=== PATIENT | male | born 1945 | race Hispanic/Latino ===

== ENCOUNTER 2017-10-28 13:30 | Observation (INO) | payer MEDICARE ==
[~2017-10-28] VITALS: Ht 180.3 cm; Wt 93.9 kg
[~2017-10-28 13:30] MED LIST: ASPI-1197 PO; PANT40TA25 PO; ROSU20TA38 PO
[2017-10-28 13:46] LABS: HEMATOCRIT 45.4 % (42-54); LYMPHOCYTES % (AUTO) 39.5 % (21.0-51.0); MEAN CORPUSCULAR HEMOGLOBIN 28.6 pg (27.0-33.0); MEAN CORPUSCULAR HGB CONC 33.8 g/dL (32.0-36.0); MEAN CORPUSCULAR VOLUME 84.7 fL (79-99); NEUTROPHILS % (AUTO) 49.5 % (40.0-77.0); NUCLEATED RED BLOOD CELLS 0.1 % (0.0-0.19); PLATELET COUNT (AUTO) 237 K/uL (130-400); RED BLOOD CELL COUNT(AUTO) 5.36 MIL/uL (4.50-6.20); RED CELL DISTRIBUTION WIDTH 14.6 % (11.0-15.5); WHITE BLOOD COUNT (AUTO) 6.7 K/uL (4.8-10.8)
[2017-10-28 13:59] LABS: INR 0.95 (0.85-1.15); PARTIAL THROMBOPLASTIN TIME 26.1 SEC (26.3-35.5)
[2017-10-28 14:04] LABS: CREATININE 1.1 mg/dL (0.5-1.5); POTASSIUM 4.2 mmol/L (3.5-5.1)
[2017-10-28 14:18] LABS: ALBUMIN 3.9 g/dL (3.5-5.0); BILIRUBIN,TOTAL 0.4 mg/dL (0.2-1.0); CREATINE KINASE MB 2.8 ng/mL (0.5-3.6); TOTAL PROTEIN, SERUM 7.5 g/dL (6.0-8.3)
[2017-10-28] MEDS ORDERED: NITROGLYCERIN 1GM/1 INCH PACKET TD ONE (14:19)
[2017-10-28] MEDS ORDERED: ASPIRIN 325 MG TABLET ONE (17:14)
[2017-10-28 20:30] LABS: CREATINE KINASE MB 2.4 ng/mL (0.5-3.6); CREATINE KINASE, TOTAL 115 U/L (21-232); MYOGLOBIN 77 ng/mL (10-92); TROPONIN I < 0.04 ng/mL (0.00-0.06)
[2017-10-28 20:38] VITALS: BP 155/85
[2017-10-28] MEDS ORDERED: NITROGLYCERIN 0.4 MG SL TAB SL PRN (20:45)
[2017-10-28] MEDS ORDERED: SODIUM CHLORIDE 0.9% 10 ML VIAL IVP PRN (20:45)
[2017-10-28] MEDS: NITROGLYCERIN 1GM/1 INCH PACKET TD SCH (21:00)
[2017-10-28] MEDS: METOPROLOL TARTRATE 25 MG TAB PO SCH (21:00)
[2017-10-28] MEDS ORDERED: METOPROLOL TARTRATE 25 MG TAB PO SCH (21:00)
[2017-10-28] MEDS ORDERED: EZET10TA26 PO (21:50)
[2017-10-28 23:26] VITALS: BP 125/76
[2017-10-29 02:59] LABS: CREATINE KINASE MB 1.9 ng/mL (0.5-3.6); CREATINE KINASE, TOTAL 104 U/L (21-232); MYOGLOBIN 76 ng/mL (10-92); TROPONIN I < 0.04 ng/mL (0.00-0.06)
[2017-10-29 02:59] LABS: THYROID STIMULATING HORMONE 2.37 uIU/mL (0.36-3.74)
[2017-10-29 04:03] VITALS: BP 127/80
[2017-10-29] MEDS: NITROGLYCERIN 1GM/1 INCH PACKET TD SCH (06:37)
[2017-10-29 07:20] VITALS: BP 146/99
[2017-10-29] MEDS ORDERED: METO25 PO (08:29)
[2017-10-29] MEDS ORDERED: LISI10TA7 PO (08:29)
[2017-10-29] MEDS ORDERED: LISINOPRIL 10 MG TABLET PO SCH (09:00)
[2017-10-29] MEDS ORDERED: ASPIRIN 325 MG TABLET PO SCH (09:00)
[2017-10-29] MEDS: METOPROLOL TARTRATE 25 MG TAB PO SCH (09:03)
[2017-10-29] MEDS ORDERED: EZETIMIBE 10 MG TAB PO SCH (21:00)
== END 2017-10-29 11:05 | disposition home or self-care (01) ==
LOC: EDH 13:30 → EDHIP 15:00 → 2AH 20:28
PROVIDERS: ADMIT Internal Medicine; ATTEND Internal Medicine
DX: R07.89 Other chest pain (principal); I25.10 Atherosclerotic heart disease of native coronary artery without angina pectoris; I10 Essential (primary) hypertension; E78.5 Hyperlipidemia, unspecified; Z95.1 Presence of aortocoronary bypass graft
CPT/HCPCS: 36415 ×2; 71045; 80053; 80061; 82550 ×3; 82553 ×3; 83874 ×2; 83880; 84443; 84484 ×3; 85025; 85610; 85730; 93005; 99285; G0378 ×20

== ENCOUNTER 2019-07-19 13:43 | Emergency (ER) | payer MEDICARE, OTHER ==
[~2019-07-19 13:43] MED LIST changes: +EZET10TA48 PO; +LISI10TA7 PO; +METO25 PO; -PANT40TA25 PO; -ROSU20TA38 PO
[2019-07-19] MEDS ORDERED: ACETAMINOPHEN EXTRA STRENGTH 500 MG TABLET ONE (14:19)
[2019-07-19] MEDS ORDERED: LIDOCAINE 5% TOPICAL PATCH TP ONE (14:23)
[2019-07-19 15:21] LABS: APPEARANCE,URINE Clear (CLEAR); BILIRUBIN,URINE Negative (NEGATIVE); COLOR,URINE Yellow (YELLOW); GLUCOSE, URINE (UA) Negative (NEGATIVE); KETONES,URINE Negative (NEGATIVE); LEUKOCYTE ESTERASE ,URINE Negative (NEGATIVE); NITRATE,URINE Negative (NEGATIVE); OCCULT BLOOD,URINE Negative (NEGATIVE); PH,URINE 5.5 (5.0-8.0); PROTEIN,URINE Negative (NEGATIVE)
== END 2019-07-19 16:11 | disposition home or self-care (01) ==
LOC: EDH 13:43
DX: M25.511 Pain in right shoulder (principal); I25.810 Atherosclerosis of coronary artery bypass graft(s) without angina pectoris
CPT/HCPCS: 73030; 81003; 93005

== ENCOUNTER → 2021-03-23 | Outpatient (CLI) | payer OTHER ==
[~2021-03-23] MED LIST changes: +LISI10TA24 PO; -LISI10TA7 PO
== END | disposition home or self-care (01) ==
LOC: RAH 08:29
DX: N28.1 Cyst of kidney, acquired (principal); K76.0 Fatty (change of) liver, not elsewhere classified
CPT/HCPCS: 76700

== ENCOUNTER → 2022-02-05 | Outpatient (CLI) | payer OTHER | END | disposition home or self-care (01) | LOC: RAH 12:08 | PROVIDERS: ATTEND Internal Medicine | DX: Z01.818 Encounter for other preprocedural examination (principal); M17.12 Unilateral primary osteoarthritis, left knee; I25.10 Atherosclerotic heart disease of native coronary artery without angina pectoris | CPT/HCPCS: 71046 ==

== ENCOUNTER 2022-03-01 08:13 | Observation (INO) | payer OTHER ==
[2022-02-26 09:25] LABS: BASOPHILS % (AUTO) 0.8 % (0.0-5.0); EOSINOPHILS % (AUTO) 5.2 % (0.0-8.0); HEMATOCRIT 45.3 % (42-54); LYMPHOCYTES % (AUTO) 36.6 % (21.0-51.0); MEAN CORPUSCULAR HEMOGLOBIN 28.5 pg (27.0-33.0); MEAN CORPUSCULAR HGB CONC 33.8 g/dL (32.0-36.0); MEAN CORPUSCULAR VOLUME 84.4 fL (79-99); NEUTROPHILS % (AUTO) 48.1 % (40.0-77.0); PLATELET COUNT (AUTO) 207 K/uL (130-400); RED BLOOD CELL COUNT(AUTO) 5.37 MIL/uL (4.50-6.20); RED CELL DISTRIBUTION WIDTH 13.5 % (11.0-15.5); WHITE BLOOD COUNT (AUTO) 7.3 K/uL (4.8-10.8)
[2022-02-26 09:35] LABS: APPEARANCE,URINE CLEAR (CLEAR); BILIRUBIN,URINE NEGATIVE (NEGATIVE); COLOR,URINE YELLOW (YELLOW); GLUCOSE, URINE (UA) NEGATIVE (NEGATIVE); KETONES,URINE NEGATIVE (NEGATIVE); LEUKOCYTE ESTERASE ,URINE NEGATIVE (NEGATIVE); NITRATE,URINE NEGATIVE (NEGATIVE); OCCULT BLOOD,URINE NEGATIVE (NEGATIVE); PH,URINE 6.5 (5.0-8.0); PROTEIN,URINE NEGATIVE (NEGATIVE); UROBILINOGEN,URINE 0.2 mg/dL (0.2-1.0)
[2022-02-26 09:37] LABS: CREATININE 1.2 mg/dL (0.5-1.5); POTASSIUM 4.7 mmol/L (3.5-5.1)
[2022-02-26 09:45] LABS: INR 0.98 (0.85-1.15); PROTHROMBIN TIME 10.7 SEC (9.6-11.6)
[2022-02-26 14:07] VITALS: BP 155/83
[~2022-03-01] VITALS: Ht 182.9 cm; Wt 95.6 kg
[2022-03-01] VITALS (26 sets, daily range): BP systolic 14–151; BP diastolic 64–85
[~2022-03-01 08:13] MED LIST changes: +EVOL140S2 SQ; -EZET10TA48 PO; -LISI10TA24 PO; +LOSA50TA64 PO; -METO25 PO; +METO25TA6 PO; +PANT40TA54 PO
[2022-03-01] MEDS ORDERED: LACTATED RINGERS 1000ML 1,000 ML IV ONE (09:08)
[2022-03-01] MEDS: CEFAZOLIN SODIUM 1 GM VIAL IVP SCH ×4 (09:10→20:31)
[2022-03-01] MEDS ORDERED: TRANEXAMIC ACID 1000MG/10ML ONE ×2 (11:19→15:30)
[2022-03-01] MEDS ORDERED: CEFAZOLIN SODIUM 1 GM VIAL ONE (11:19)
[2022-03-01] MEDS ORDERED: GLYCOPYRROLATE 1 MG/5 ML SYRINGE ONE (12:18)
[2022-03-01] MEDS ORDERED: SUCCINYLCHOLINE CHLORIDE 20 MG/ML 10 ML VIAL ONE ×2 (12:18→12:20)
[2022-03-01] MEDS ORDERED: PROPOFOL 10 MG/ML 20ML VIAL IV ONE (12:18)
[2022-03-01] MEDS ORDERED: LIDOCAINE PF 100MG/5ML (2%) SYRINGE 5ML ONE ×2 (12:18→12:50)
[2022-03-01] MEDS ORDERED: ROCURONIUM 10MG/1ML SYR 10 MG/ML ML ONE ×2 (12:19→14:12)
[2022-03-01] MEDS ORDERED: MIDAZOLAM HCL 1 MG/ML 2ML VIAL ONE (12:19)
[2022-03-01] MEDS ORDERED: NEOSTIGMINE 5MG/5ML SYR IV ONE (12:19)
[2022-03-01] MEDS ORDERED: ONDANSETRON 4MG INJ ONE (12:19)
[2022-03-01] MEDS ORDERED: FENTANYL CITRATE PF 50 MCG/1 ML 2ML VIAL ONE (12:20)
[2022-03-01] MEDS ORDERED: ROPIVACAINE 0.5% 5MG/ML 30ML IJ ONE (12:28)
[2022-03-01] MEDS ORDERED: MEPERIDINE-PF 25 MG/ML SYG ONE (14:42)
[2022-03-01] MEDS ORDERED: PHENYLEPHRINE HCL 10 MG/ML 1ML VIAL IV ONE (14:47)
[2022-03-01] MEDS ORDERED: EPHEDRINE SULFATE 50 MG/ML AMPULE ONE (15:00)
[2022-03-01] MEDS ORDERED: FERROUS FUMARATE 324 MG TABLET PO PRN (15:00)
[2022-03-01] MEDS ORDERED: 0.9%NACL 1000ML 1,000 ML IV SCH (15:00)
[2022-03-01] MEDS ORDERED: LIDOCAINE HCL-MPF 1% 2ML VIAL IV PRN (15:00)
[2022-03-01] MEDS ORDERED: POTASSIUM CHLORIDE 20MEQ/100ML 100 ML IV PRN (15:00)
[2022-03-01] MEDS ORDERED: OXYCODONE HCL 5 MG TAB PO PRN (15:00)
[2022-03-01] MEDS ORDERED: DiphenhydrAMINE HCL 50 MG/ML VIAL IVP PRN (15:00)
[2022-03-01] MEDS ORDERED: CALCIUM CARB 500MG PO PRN (15:00)
[2022-03-01] MEDS ORDERED: KCL 20 MEQ ERTAB PO PRN (15:00)
[2022-03-01] MEDS ORDERED: TRAMADOL HCL 50 MG TABLET PO PRN (15:00)
[2022-03-01] MEDS ORDERED: ONDANSETRON 4MG INJ IVP PRN (15:00)
[2022-03-01] MEDS: ACETAMINOPHEN 500 MG TABLET PO SCH ×2 (15:00→20:31)
[2022-03-01] MEDS ORDERED: POTASSIUM CHLORIDE 10% ELIXIR 20 MEQ/15 ML UDCUP PO PRN (15:00)
[2022-03-01] MEDS ORDERED: DEXAMETHASONE SOD PHOSPHATE 10MG/ML 1ML VIAL ONE (15:18)
[2022-03-01] MEDS ORDERED: REPATHA SQ SCH (17:30)
[2022-03-01] MEDS: ASPIRIN 81 MG EC TAB PO SCH (20:30)
[2022-03-01] MEDS: LOSARTAN 50 MG TABLET PO SCH (20:30)
[2022-03-01] MEDS: CELECOXIB 200 MG CAP PO SCH (20:30)
[2022-03-01] MEDS: METOPROLOL TARTRATE 25 MG TAB PO SCH (20:30)
[2022-03-01] MEDS: FAMOTIDINE 20MG TAB PO SCH (20:30)
[2022-03-02] MEDS: OXYCODONE HCL 5 MG TAB PO PRN ×2 (01:46→08:26)
[2022-03-02 03:23] VITALS: BP 145/76
[2022-03-02] MEDS: CEFAZOLIN SODIUM 1 GM VIAL IVP SCH (03:25)
[2022-03-02] MEDS: KETOROLAC 15MG/ML VIAL (15MG/ML) IV PRN ×2 (03:26→19:53)
[2022-03-02 05:08] LABS: HEMATOCRIT 40.6 % (42-54); MEAN CORPUSCULAR HEMOGLOBIN 28.8 pg (27.0-33.0); MEAN CORPUSCULAR HGB CONC 34.2 g/dL (32.0-36.0); MEAN CORPUSCULAR VOLUME 84.1 fL (79-99); RED BLOOD CELL COUNT(AUTO) 4.83 MIL/uL (4.50-6.20); RED CELL DISTRIBUTION WIDTH 13.4 % (11.0-15.5); WHITE BLOOD COUNT (AUTO) 13.7 K/uL (4.8-10.8)
[2022-03-02 05:21] LABS: CREATININE 1.4 mg/dL (0.5-1.5); POTASSIUM 4.2 mmol/L (3.5-5.1)
[2022-03-02] MEDS: ACETAMINOPHEN 500 MG TABLET PO SCH ×4 (06:04→22:06)
[2022-03-02 08:00] VITALS: BP 144/74
[2022-03-02] MEDS: POLYETHYLENE GLYCOL 3350 17 GM POWD.PACK PO SCH (10:01)
[2022-03-02] MEDS: ASPIRIN 81 MG EC TAB PO SCH ×2 (10:02→19:49)
[2022-03-02] MEDS: CELECOXIB 200 MG CAP PO SCH ×2 (10:02→19:49)
[2022-03-02] MEDS: LOSARTAN 50 MG TABLET PO SCH ×2 (10:02→19:49)
[2022-03-02] MEDS: ASPIRIN 81MG CHEW TAB PO SCH (10:02)
[2022-03-02] MEDS: PANTOPRAZOLE 40 MG TAB DR PO SCH (10:02)
[2022-03-02] MEDS: FAMOTIDINE 20MG TAB PO SCH ×2 (10:02→19:49)
[2022-03-02] MEDS: METOPROLOL TARTRATE 25 MG TAB PO SCH ×2 (10:02→19:49)
[2022-03-02] MEDS: TAMSULOSIN HCL 0.4 MG CAP.ER.24H PO SCH (10:02)
[2022-03-02 11:44] VITALS: BP 143/83
[2022-03-02 16:00] VITALS: BP 132/79
[2022-03-02 20:49] VITALS: BP 113/67
[2022-03-03] MEDS: CEFAZOLIN SODIUM 1 GM VIAL IVP SCH (04:20)
[2022-03-03 05:17] VITALS: BP 147/100
[2022-03-03] MEDS: ACETAMINOPHEN 500 MG TABLET PO SCH (05:27)
[2022-03-03 08:00] VITALS: BP 147/88
[2022-03-03] MEDS: POLYETHYLENE GLYCOL 3350 17 GM POWD.PACK PO SCH (08:17)
[2022-03-03] MEDS: PANTOPRAZOLE 40 MG TAB DR PO SCH (08:17)
[2022-03-03] MEDS: METOPROLOL TARTRATE 25 MG TAB PO SCH (08:17)
[2022-03-03] MEDS: LOSARTAN 50 MG TABLET PO SCH (08:17)
[2022-03-03] MEDS: FAMOTIDINE 20MG TAB PO SCH (08:17)
[2022-03-03] MEDS: TAMSULOSIN HCL 0.4 MG CAP.ER.24H PO SCH (08:17)
[2022-03-03] MEDS: OXYCODONE HCL 5 MG TAB PO PRN (08:18)
[2022-03-03] MEDS: ASPIRIN 81 MG EC TAB PO SCH (08:19)
[2022-03-03] MEDS: CELECOXIB 200 MG CAP PO SCH (08:19)
[2022-03-03] MEDS: ASPIRIN 81MG CHEW TAB PO SCH (08:19)
[2022-03-03] MEDS ORDERED: ASPI-1197 PO (11:53)
[2022-03-03] MEDS ORDERED: IBUP-2077 PO (11:53)
[2022-03-04] MEDS ORDERED: BISACODYL 10 MG SUPP.RECT RC PRN (15:00)
== END 2022-03-03 15:18 | disposition home or self-care (01) ==
LOC: DAH 08:13 → DAHIP 08:14 → DAH 08:14 → 4AH 17:11
PROVIDERS: ADMIT Orthopaedic Surgery; ATTEND Orthopaedic Surgery
DX: M17.12 Unilateral primary osteoarthritis, left knee (principal); Z20.822 Contact with and (suspected) exposure to COVID-19; M25.562 Pain in left knee; G89.29 Other chronic pain; I25.10 Atherosclerotic heart disease of native coronary artery without angina pectoris; D64.9 Anemia, unspecified; K40.90 Unilateral inguinal hernia, without obstruction or gangrene, not specified as recurrent; N40.1 Benign prostatic hyperplasia with lower urinary tract symptoms; E78.5 Hyperlipidemia, unspecified; R33.8 Other retention of urine; Z95.1 Presence of aortocoronary bypass graft
CPT/HCPCS: 80048 ×2; 85025; 85610; 87088; 87426; 81003; 36415 ×2; 87641; 27447; 96374; 96376; 96375; 85027; 97161; 97039 ×3; 97116 ×3; 97530 ×3; G0378 ×48; A4663; J7120 ×2; A4600; J3010; J0690 ×4; J3490 ×4; J1100; J2710; J0330 ×2; J2001 ×2; J2250; J2704; J2405; J2175; J2795; J2370; A9272; A4649 ×4; A4930; C1776; A4215; A4223; A4222; A4221; J1885 ×2; 64447; 76942

== ENCOUNTER 2022-03-06 03:58 | Emergency (ER) | payer OTHER ==
[~2022-03-06] VITALS: Ht 180.3 cm; Wt 95.3 kg
[~2022-03-06 03:58] MED LIST changes: +IBUP-2077 PO
[2022-03-06 04:21] VITALS: BP 138/78
[2022-03-06 04:27] LABS: APPEARANCE,URINE CLEAR (CLEAR); BILIRUBIN,URINE NEGATIVE (NEGATIVE); COLOR,URINE YELLOW (YELLOW); GLUCOSE, URINE (UA) NEGATIVE (NEGATIVE); KETONES,URINE NEGATIVE (NEGATIVE); LEUKOCYTE ESTERASE ,URINE NEGATIVE (NEGATIVE); NITRATE,URINE NEGATIVE (NEGATIVE); OCCULT BLOOD,URINE NEGATIVE (NEGATIVE); PROTEIN,URINE NEGATIVE (NEGATIVE); UROBILINOGEN,URINE 0.2 mg/dL (0.2-1.0)
== END 2022-03-06 04:53 | disposition home or self-care (01) ==
LOC: EDH 03:58
DX: R33.9 Retention of urine, unspecified (principal); I25.10 Atherosclerotic heart disease of native coronary artery without angina pectoris; Z79.1 Long term (current) use of non-steroidal anti-inflammatories (NSAID); Z79.82 Long term (current) use of aspirin; Z95.1 Presence of aortocoronary bypass graft
CPT/HCPCS: 51702; 81003

== ENCOUNTER 2022-03-12 17:59 | Emergency (ER) | payer OTHER ==
[~2022-03-12] VITALS: Ht 180.3 cm; Wt 95.3 kg
[2022-03-12 18:33] LABS: APPEARANCE,URINE CLEAR (CLEAR); BILIRUBIN,URINE NEGATIVE (NEGATIVE); COLOR,URINE YELLOW (YELLOW); GLUCOSE, URINE (UA) NEGATIVE (NEGATIVE); KETONES,URINE NEGATIVE (NEGATIVE); LEUKOCYTE ESTERASE ,URINE TRACE (NEGATIVE); NITRATE,URINE POSITIVE (NEGATIVE); OCCULT BLOOD,URINE SMALL (NEGATIVE); PROTEIN,URINE TRACE mg/dL (NEGATIVE); UROBILINOGEN,URINE 0.2 mg/dL (0.2-1.0)
[2022-03-12 18:41] LABS: BASOPHILS % (AUTO) 0.7 % (0.0-5.0); EOSINOPHILS % (AUTO) 6.9 % (0.0-8.0); HEMATOCRIT 34.1 % (42-54); MEAN CORPUSCULAR HEMOGLOBIN 28.6 pg (27.0-33.0); MEAN CORPUSCULAR HGB CONC 33.4 g/dL (32.0-36.0); MEAN CORPUSCULAR VOLUME 85.5 fL (79-99); NEUTROPHILS % (AUTO) 69.7 % (40.0-77.0); PLATELET COUNT (AUTO) 317 K/uL (130-400); RED BLOOD CELL COUNT(AUTO) 3.99 MIL/uL (4.50-6.20)
[2022-03-12 18:49] LABS: BACTERIA,URINE Moderate /HPF (None Seen); SQUAMOUS EPITHELIAL CELL,UR Rare /HPF (0-2)
[2022-03-12 18:55] LABS: CREATININE 1.6 mg/dL (0.5-1.5); POTASSIUM 4.9 mmol/L (3.5-5.1)
[2022-03-12 19:00] LABS: TOTAL PROTEIN, SERUM 7.2 g/dL (6.0-8.3)
[2022-03-12] MEDS ORDERED: CEFTRIAXONE 1G VIAL IM ONE (19:00)
[2022-03-12] MEDS ORDERED: CEPH500B PO (19:27)
[2022-03-12 19:34] VITALS: BP 141/69
== END 2022-03-12 19:46 | disposition home or self-care (01) ==
LOC: EDH 17:59
DX: N39.0 Urinary tract infection, site not specified (principal); R33.9 Retention of urine, unspecified; I25.10 Atherosclerotic heart disease of native coronary artery without angina pectoris; I10 Essential (primary) hypertension; E78.5 Hyperlipidemia, unspecified; Z79.1 Long term (current) use of non-steroidal anti-inflammatories (NSAID); Z79.82 Long term (current) use of aspirin; Z95.1 Presence of aortocoronary bypass graft
CPT/HCPCS: 99284; 80053; 85025; 87077; 87088; 87186; 81001; 36415; 51702; 96372; J0696

== ENCOUNTER 2022-03-29 22:06 | Emergency (ER) | payer OTHER ==
[~2022-03-29] VITALS: Ht 180.3 cm; Wt 93.0 kg
[~2022-03-29 22:06] MED LIST changes: +CEPH500B PO
[2022-03-29 22:08] VITALS: BP 130/86
[2022-03-29 23:12] LABS: APPEARANCE,URINE CLEAR (CLEAR); BILIRUBIN,URINE NEGATIVE (NEGATIVE); COLOR,URINE YELLOW (YELLOW); GLUCOSE, URINE (UA) NEGATIVE (NEGATIVE); KETONES,URINE NEGATIVE (NEGATIVE); LEUKOCYTE ESTERASE ,URINE NEGATIVE (NEGATIVE); NITRATE,URINE NEGATIVE (NEGATIVE); OCCULT BLOOD,URINE NEGATIVE (NEGATIVE); PH,URINE 5.5 (5.0-8.0); PROTEIN,URINE NEGATIVE (NEGATIVE); UROBILINOGEN,URINE 0.2 mg/dL (0.2-1.0)
== END 2022-03-29 23:23 | disposition home or self-care (01) ==
LOC: EDH 22:06
DX: R33.9 Retention of urine, unspecified (principal); E78.00 Pure hypercholesterolemia, unspecified; I10 Essential (primary) hypertension; Z98.890 Other specified postprocedural states; Z79.899 Other long term (current) drug therapy; Z79.82 Long term (current) use of aspirin
CPT/HCPCS: 51702; 81003

== ENCOUNTER 2022-04-12 16:44 | Emergency (ER) | payer OTHER ==
[~2022-04-12] VITALS: Ht 180.3 cm; Wt 95.7 kg
[2022-04-12 17:39] LABS: APPEARANCE,URINE CLEAR (CLEAR); BILIRUBIN,URINE NEGATIVE (NEGATIVE); COLOR,URINE YELLOW (YELLOW); GLUCOSE, URINE (UA) NEGATIVE (NEGATIVE); KETONES,URINE NEGATIVE (NEGATIVE); LEUKOCYTE ESTERASE ,URINE TRACE (NEGATIVE); NITRATE,URINE NEGATIVE (NEGATIVE); OCCULT BLOOD,URINE NEGATIVE (NEGATIVE); PH,URINE 5.5 (5.0-8.0); PROTEIN,URINE NEGATIVE (NEGATIVE); UROBILINOGEN,URINE 0.2 mg/dL (0.2-1.0)
[2022-04-12 17:48] LABS: RBC,URINE None Seen /HPF (0-1)
[2022-04-12 17:49] LABS: BACTERIA,URINE None Seen /HPF (None Seen); SQUAMOUS EPITHELIAL CELL,UR None Seen /HPF (0-2); WBC,URINE 0-1 /HPF (0-1)
[2022-04-12] MEDS ORDERED: CIPR-279 PO (18:27)
[2022-04-12 18:32] VITALS: BP 136/89
== END 2022-04-12 18:30 | disposition home or self-care (01) ==
LOC: EDH 16:44
DX: N39.0 Urinary tract infection, site not specified (principal); R33.9 Retention of urine, unspecified; E78.00 Pure hypercholesterolemia, unspecified; I10 Essential (primary) hypertension; Z98.890 Other specified postprocedural states; Z79.82 Long term (current) use of aspirin; Z79.899 Other long term (current) drug therapy
CPT/HCPCS: 51702; 81001

== ENCOUNTER → 2022-05-27 | Outpatient (CLI) | payer OTHER ==
[~2022-05-27] MED LIST changes: +CIPR-279 PO
== END | disposition home or self-care (01) ==
LOC: SHCH 10:09
PROVIDERS: ATTEND Internal Medicine Cardiovascular Disease
DX: I25.810 Atherosclerosis of coronary artery bypass graft(s) without angina pectoris (principal)
CPT/HCPCS: 93306

== ENCOUNTER → 2024-11-12 | Outpatient (CLI) | payer OTHER | END | disposition home or self-care (01) | LOC: SHCH 11:12 | PROVIDERS: ATTEND Internal Medicine Cardiovascular Disease | DX: I70.203 Unspecified atherosclerosis of native arteries of extremities, bilateral legs (principal) | CPT/HCPCS: 93925 ==

== ENCOUNTER 2025-06-12 11:48 | Emergency (ER) | payer OTHER ==
[~2025-06-12] VITALS: Ht 180.3 cm; Wt 87.5 kg
[2025-06-12 11:54] VITALS: TEMP 97.3
--- NOTE | 2025-06-12 11:57 | ERN ---
General Chief Complaint: Chest Pain Stated Complaint: CP Time Seen by MD: 11:55 Source: patient History of Present Illness Initial Comments Patient Is a 80-year-old gentleman coming in complaining of left-sided chest pain. Per patient the chest pain has been ongoing for three weeks. Along with the chest discomfort patient states that his blood pressure has been extremely high. Allergies: Coded Allergies: No Known Drug Allergies (Verified Allergy, 08/15/13) Home Meds Active Scripts Ciprofloxacin HCl (Cipro) 250 Mg Tablet, 250 MG PO BID for 7 Days, #14 TAB Prov:ANA NAIR MD 04/12/22 Cephalexin Monohydrate (Keflex) 500 Mg Cap, 500 MG PO QID for 7 Days, #28 CAP Prov:PHUONG AVILA 03/12/22 Ibuprofen (Ibuprofen 800 mg Tab) 800 Mg Tab, 800 MG PO Q8H PRN for PAIN, #60 TAB 1 Refill Prov:LUNA JUDD MD 03/03/22 Aspirin (Aspirin) 81 Mg Tab.chew, 81 MG PO BID, #60 TAB.CHEW Prov:LUNA JUDD MD 03/03/22 Reported Medications Evolocumab (Repatha Syringe) 140 Mg/1 Ml Syringe, 140 MG SQ AD, SYRINGE 02/26/22 Metoprolol Tartrate (Metoprolol Tartrate) 25 Mg Tablet, 25 MG PO BID, TAB 02/26/22 Pantoprazole Sodium (Pantoprazole Sodium) 40 Mg Tablet.dr, 40 MG PO DAILY, TAB 02/26/22 Losartan Potassium (Losartan Potassium) 50 Mg Tablet, 50 MG PO BID, TAB 02/26/22 Past Medical History Past Medical History: High Cholesterol, Hypertension Medical History Other: SYNCOPAL EPISODE Past Surgical History: CABG, Other Surgical History Other: LEFT KNEE, RT SHOULDER ARTHROSCOPY, CABG X 4, HERNIA REPAIR Family History Family History: Negative Social History Social History: Negative, Lives with family ROS Dictation CONSTITUTIONAL: No chills, no fever, no weakness, no diaphoresis, no malaise. HEAD/FACE: No signs of trauma. EENT: No eye pain, no blurred vision, no tearing, no double vision, no ear pain, no ear discharge, no nose pain, no nasal congestion, no throat pain, no throat swelling, no mouth pain. RESPIRATORY: No cough, no orthopnea, no SOB, no stridor, no wheezing. CARDIOVASCULAR: No chest pain, no edema, no palpitations, no syncope. GASTROINTESTINAL/ABDOMINAL: No abdominal pain, no constipation, no diarrhea, no nausea, no vomiting. GENITOURINARY: No abnormal discharge, no dysuria, no frequent urination, no hematuria. No complaints of pain in the genitals. MUSCULOSKELETAL: No back pain, no gout, no joint pain, no joint swelling, no muscle pain, no muscle stiffness, no neck pain. INTEGUMENTARY: No change in color, no change in hair/nails, no dryness, no lesion, no lumps, no rash. NEUROLOGICAL/PSYCH: No anxiety, not depressed, no emotional problem, no headache, no numbness, no pre-existing deficit, no history of seizures, no enedina mors, no weakness. HEMATOLOGIC/LYMPHATIC: Not anemic, no history of blood clots, no apparent bleeding, no bruising, glands not swollen. All Systems Negative, Except as Noted. Physical Exam Physical Exam Dictation VITAL SIGNS: Reviewed. GENERAL APPEARANCE: Alert, oriented x3, no acute distress, obese. HEAD AND FACE: Non-traumatic. EYES: PERRL, pink conjunctivas, eyelid no trauma, anterior chamber clear. EARS: Pinnas intact and no signs of trauma or erythema. Ear canals clear and no discharge. TMs no erythema. NOSE: No discharge, no bleeding. OROPHARYNX: Mouth normal, teeth no caries, tongue pink. Pharynx clear, no erythema. Tonsils no exudates, no abscesses noted. Mucous membrane moist. NECK: Supple, non-tender, no thyromegaly, no masses, no JVD, no bruits. BREAST: Deferred. CHEST: No tenderness, no crepitus, no paradoxical movement, no retractions. LUNGS: Clear, well-ventilated, symmetric, no rales, no wheezing, no rhonchi, no stridor, good breath sounds bilaterally. HEART: Regular rate, regular rhythm, no murmur, no gallops. VASCULAR: No peripheral edema. ABDOMEN: Soft, positive bowel sounds, nondistended, no guarding, nontender, no rebound, no masses no hepatomegaly, no splenomegaly, no Short's sign, no hernias. RECTAL: Deferred. GENITAL: Deferred. NEUROLOGICAL: Normal speech, gross motor function intact, gross sensory function intact. MUSCULOSKELETAL: Neck nontender, full range of motion, back nontender, full range of motion. EXTREMITIES: Nontender, full range of motion. SKIN: Color pink, dry, no turgor, no rash, no lacerations, no abrasions, no contusions. LYMPHATICS: Deferred. Results Laboratory and Microbiology Lab and Micro Result Laboratory Tests Test 06/12/25 12:03 06/12/25 13:53 06/12/25 15:00 White Blood Count 7.6 K/uL (4.8-10.8) Red Blood Count 5.25 MIL/uL (4.50-6.20) Hemoglobin 15.1 g/dL (14.0-18.0) Hematocrit 44.6 % (42-54) Mean Corpuscular Volume 85.0 fL (79-99) Mean Corpuscular Hemoglobin 28.8 pg (27.0-33.0) Mean Corpuscular Hemoglobin Concent 33.9 g/dL (32.0-36.0) Red Cell Distribution Width 14.7 % (11.0-15.5) Platelet Count 234 K/uL (130-400) Mean Platelet Volume 9.3 fL (7.5-10.5) Immature Granulocyte % (Auto) 0.3 % (0-1) Neutrophils (%) (Auto) 59.4 % (40.0-77.0) Lymphocytes (%) (Auto) 27.3 % (21.0-51.0) Monocytes (%) (Auto) 7.6 % (3.0-13.0) Eosinophils (%) (Auto) 4.3 % (0.0-8.0) Basophils (%) (Auto) 1.1 % (0.0-5.0) Neutrophils # (Auto) 4.5 K/uL (1.8-7.7) Lymphocytes # (Auto) 2.1 K/uL (1.0-4.8) Monocytes # (Auto) 0.6 K/uL (0.1-1.0) Eosinophils # (Auto) 0.33 K/uL (0.00-0.70) Basophils # (Auto) 0.08 K/uL (0.00-0.20) Absolute Immature Granulocyte (auto 0.02 K/uL (0-1) Nucleated Red Blood Cells 0.0 % (0.0-0.19) Prothrombin Time 10.9 SEC (9.6-11.6) Prothromb Time International Ratio 1.03 (0.85-1.15) Activated Partial Thromboplast Time 27.4 SEC (26.3-35.5) Sodium Level 137 mmol/L (136-145) Potassium Level 4.1 mmol/L (3.5-5.1) Chloride Level 102 mmol/L (101-111) Carbon Dioxide Level 29 mmol/L (21-32) Blood Urea Nitrogen 13 mg/dL (7-18) Creatinine 1.1 mg/dL (0.5-1.3) Glomerular Filtration Rate Calc 68 mL/min (>90) Random Glucose 93 mg/dL (70-105) Total Calcium 9.0 mg/dL (8.5-10.1) Magnesium Level 1.80 mg/dL (1.80-2.40) Total Creatine Kinase 136 U/L (21-232) # Troponin I High Sensitivity 12 ng/L (4-75) 13 ng/L (4-75) Urine Color LIGHT-YELLOW (YELLOW) Urine Appearance CLEAR (CLEAR) Urine pH 5.5 (5.0-8.0) Urine Specific [place] 1.021 (1.001-1.031) Urine Protein NEGATIVE mg/dL (NEGATIVE) Urine Glucose (UA) NEGATIVE mg/dL (NEGATIVE) Urine Ketones NEGATIVE mg/dL (NEGATIVE) Urine Occult Blood +- (TRACE) (NEGATIVE) H Urine Nitrate NEGATIVE (NEGATIVE) Urine Bilirubin NEGATIVE mg/dL (NEGATIVE) Urine Urobilinogen 0.2 mg/dL (0.2-1.0) Urine Leukocyte Esterase NEGATIVE [place]/uL Urine RBC 2-5 /HPF (0-1) H Urine WBC 0-1 /HPF (0-1) Urine Bacteria None /HPF (None Seen) Labs Reviewed?: Yes EKG/XRAY/US/CT/MRI EKG Comment 06/12/2025 time 11:20 a.m. Ventricular rate 54 Sinus rhythm [place] [address] wave elevation or depression X-RAY Comment [place] [address] [place] [id number] IMAGING REPORT Signed PATIENT: MAISHA DARLING MR#: [id number] : 1945 SEX: M AGE: 80 LOCATION: [facility] ORDER 56 STATUS: REG ER REPORT#: [id number] SERVICE 54 REASON: cp ORDERING PHYSICIAN: ANA NAIR MD PROCEDURE: CXR1VW - CHEST 1VW EXAM: CR Chest, 1 View. CLINICAL HISTORY: cp COMPARISON: None provided. FINDINGS: LUNGS: There is no mass, infiltrate, or acute pulmonary abnormality. PLEURAL SPACES: No pleural effusion or pneumothorax. MEDIASTINUM: Prior sternotomy. Cardiac size and mediastinal contours within normal limits. BONES: No aggressive appearing osseous lesion seen. IMPRESSION: No acute cardiopulmonary pathology is evident. /[place] DICTATED BY: DAVID MORENO Jr., MD DATE: 06/12/251636 ELECTRONICALLY SIGNED BY: DAVID MORENO Jr., MD DATE: 06/12/251636 MDM MDM: Differential diagnosis: History of hypertension, using sildenafil Rationale: Tests considered and ordered secondary to shared decision making include: Previous outside records reviewed: Old ER visits. Risk of complication and/or morbidity or mortality of patient management: None Medications-Per medication reconciliation Need for hospitalization: Patient does not meet criteria for hospitalization. Need for emergency major/minor surgery: No There are no social concerns with this patient. Patient is a 80-year-old male coming in complaining of elevated blood pressure and then lower blood pressure. Cardiac workup negative for any acute findings. Patient states that he has been taking his sildenafil and could be contributing to his lower blood pressure. I did advise him to abstain from using his sildenafil until his blood pressure was controlled. We will be adding a small diuretic to his regimen and advised him appropriate follow up with PCP for o ngoing evaluation and management. ED Course Orders Procedure Category Date Status Time Cbc With Differential LAB 06/12/25 Complete 11:55 Prothrombin Time With LAB 06/12/25 Complete INR 11:55 Chest 1vw RAD 06/12/25 Resulted 11:55 12 Lead Ekg Tracing- EKG 06/12/25 Complete Technical 11:55 Magnesium LAB 06/12/25 Complete 11:55 Creatine Kinase, Total LAB 06/12/25 Complete 11:55 Troponin I High LAB 06/12/25 Complete Sensitivity 11:55 Urinalysis Profile LAB 06/12/25 Complete 11:55 Partial LAB 06/12/25 Complete Thromboplastin Time 11:55 Basic Metabolic Panel LAB 06/12/25 Complete 11:55 Troponin I High LAB 06/12/25 Complete Sensitivity 13:34 Vital Signs Date Time Temp Pulse Resp B/P (MAP) Pulse Ox O2 Delivery O2 Flow Rate FiO2 06/12/25 15:42 54 16 148/76 98 Room Air* 0 06/12/25 14:33 57 16 161/82 98 Room Air* 0 21 06/12/25 13:49 53 16 149/86 99 Room Air* 0 06/12/25 11:54 97.3 54 18 178/100 98 Room Air 0 DX & DISP Disposition: Discharge Departure Impression: Primary Impression: Hypertension, uncontrolled Condition: Stable Scripts Hydrochlorothiazide (Hydrochlorothiazide) 12.5 Mg Tablet 1 TAB PO DAILY for 30 Days, #30 TAB 0 Refills Prov: ANA NAIR MD 06/12/25 Additional Instructions: You have been reviewed in the emergency department at [facility] after presenting with chest pain. After considering your history, your risk factors, your EKG and your blood test troponins, have been found to be at very low risk less than (1 in 100) of having a major adverse cardiac event (like heart attack) in the near future. In the " low risk" group, the risks of doing further tests and treatment as the inpatient outweighs the benefits. In many patients in the low risk group for the test of any sort or unnecessary, however he should discuss this further with his general practitioner who will understand the medical and personal backgrounds better. Because we have never declared you" no risk" we would suggest. 1 returning for medical review if you have further episodes of chest pain/arm pain or other concerning symptoms like dizziness, collapse, palpitations or shortness of breath. 2. Following up with your local doctor who will consider the need for further testing and will also ensure that any modifiable risk factors you may have for heart disease are optimally managed. Patient will be discharged in stable condition at the moment discharge patient states , no chest pain Referrals: PHYLLIS SOTO MD (PCP) Time of Disposition: 15:57 ANA NAIR MD Jun 12, 2025 11:57
--- NOTE | 2025-06-12 12:01 | EKG ---
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
[2025-06-12 12:24] LABS: IMMATURE GRANULOCYTE ABSOLUTE 0.02 K/uL (0-1); NUCLEATED RED BLOOD CELLS 0.0 % (0.0-0.19); PLATELET COUNT (AUTO) 234 K/uL (130-400); RED BLOOD CELL COUNT(AUTO) 5.25 MIL/uL (4.50-6.20); RED CELL DISTRIBUTION WIDTH 14.7 % (11.0-15.5); WHITE BLOOD COUNT (AUTO) 7.6 K/uL (4.8-10.8)
[2025-06-12 12:45] LABS: CREATINE KINASE, TOTAL 136.0 U/L (21-232); CREATININE 1.1 mg/dL (0.5-1.3); GLOMERULAR FILTR. RATE CALC 68.0 mL/min (>90); GLUCOSE,RANDOM 93.0 mg/dL (70-105); SODIUM SERUM 137.0 mmol/L (136-145); UREA NITROGEN, BLOOD 13.0 mg/dL (7-18)
[2025-06-12 12:49] LABS: INR 1.03 (0.85-1.15)
--- NOTE | 2025-06-12 13:38 | NUR ---
RECEIVED PT TO ROOM 13
[2025-06-12 15:17] LABS: APPEARANCE,URINE CLEAR (CLEAR); GLUCOSE, URINE (UA) NEGATIVE (NEGATIVE); LEUKOCYTE ESTERASE ,URINE NEGATIVE Leu/uL (NEGATIVE); NITRATE,URINE NEGATIVE (NEGATIVE); OCCULT BLOOD,URINE +- (TRACE) (NEGATIVE)
[2025-06-12 15:20] LABS: ADD UA MICROSCOPIC YES
--- NOTE | 2025-06-12 15:38 | HMCIMG ---
EXAM: CR Chest, 1 View. CLINICAL HISTORY: cp COMPARISON: None provided. FINDINGS: LUNGS: There is no mass, infiltrate, or acute pulmonary abnormality. PLEURAL SPACES: No pleural effusion or pneumothorax. MEDIASTINUM: Prior sternotomy. Cardiac size and mediastinal contours within normal limits. BONES: No aggressive appearing osseous lesion seen. IMPRESSION: No acute cardiopulmonary pathology is evident. /[place]
[2025-06-12 15:42] VITALS: BP 148/76; PULSE 54; RESP 16; O2SAT 98
[2025-06-12] MEDS ORDERED: HYDR12.54 PO (15:57)
== END 2025-06-12 16:04 | disposition home or self-care (01) ==
LOC: EDH 11:48
DX: I10 Essential (primary) hypertension (principal); E78.00 Pure hypercholesterolemia, unspecified; Z79.82 Long term (current) use of aspirin; Z79.899 Other long term (current) drug therapy; Z95.1 Presence of aortocoronary bypass graft; Z98.890 Other specified postprocedural states
CPT/HCPCS: 36415; 71045; 80048; 81001; 82550; 83735; 84484; 85025; 85610; 85730; 93005; 99285